=== PATIENT | male | born 1990 | race Caucasian/White ===

== ENCOUNTER 2018-04-07 07:07 | Emergency (ER) | payer OTHER ==
[~2018-04-07] VITALS: Ht 188 cm; Wt 88.5 kg
[2018-04-07 07:10] VITALS: BP 143/82
== END 2018-04-07 07:24 | disposition home or self-care (01) ==
LOC: ER 07:11
DX: G62.89 Other specified polyneuropathies (principal); F41.9 Anxiety disorder, unspecified
CPT/HCPCS: A4606; Z7610

== ENCOUNTER 2018-04-20 10:30 | Emergency (ER) | payer OTHER ==
[~2018-04-20] VITALS: Ht 188 cm; Wt 83.9 kg
[2018-04-20 10:34] VITALS: BP 115/74
== END 2018-04-20 11:31 | disposition home or self-care (01) ==
LOC: ER 10:34
DX: F41.9 Anxiety disorder, unspecified (principal); Z76.0 Encounter for issue of repeat prescription; F17.200 Nicotine dependence, unspecified, uncomplicated; G62.9 Polyneuropathy, unspecified
CPT/HCPCS: 99283; A4606; Z7610

== ENCOUNTER 2018-06-16 17:50 | Emergency (ER) | payer OTHER ==
[~2018-06-16] VITALS: Ht 188 cm; Wt 86.2 kg
[2018-06-16 17:50] VITALS: BP 130/83
== END 2018-06-16 18:33 | disposition home or self-care (01) ==
LOC: ER 17:54
DX: Z76.0 Encounter for issue of repeat prescription (principal); F41.9 Anxiety disorder, unspecified; G62.9 Polyneuropathy, unspecified; F17.200 Nicotine dependence, unspecified, uncomplicated
CPT/HCPCS: 99283; A4606; Z7610

== ENCOUNTER 2018-12-04 10:46 | Emergency (ER) | payer OTHER ==
[~2018-12-04] VITALS: Ht 188 cm; Wt 86.2 kg
[2018-12-04 11:16] VITALS: BP 140/81
== END 2018-12-04 11:48 | disposition home or self-care (01) ==
LOC: ER 10:48
DX: Z76.0 Encounter for issue of repeat prescription (principal); F41.9 Anxiety disorder, unspecified; F17.200 Nicotine dependence, unspecified, uncomplicated; G62.9 Polyneuropathy, unspecified; Z60.2 Problems related to living alone

== ENCOUNTER 2018-12-14 18:26 | Emergency (ER) | payer OTHER ==
[~2018-12-14] VITALS: Ht 175.3 cm; Wt 77.1 kg
[2018-12-14 18:35] VITALS: BP 129/71
== END 2018-12-14 19:45 | disposition home or self-care (01) ==
LOC: ER 18:29
DX: G62.9 Polyneuropathy, unspecified (principal); F41.9 Anxiety disorder, unspecified; F17.200 Nicotine dependence, unspecified, uncomplicated; Z60.2 Problems related to living alone
CPT/HCPCS: 99283; A4606

== ENCOUNTER 2019-01-05 10:59 | Emergency (ER) | payer OTHER ==
[~2019-01-05] VITALS: Ht 188 cm; Wt 84.4 kg
[2019-01-05 11:06] VITALS: BP 148/88
== END 2019-01-05 11:43 | disposition home or self-care (01) ==
LOC: ER 11:02
DX: G62.9 Polyneuropathy, unspecified (principal); F17.200 Nicotine dependence, unspecified, uncomplicated; F32.9 Major depressive disorder, single episode, unspecified; F41.9 Anxiety disorder, unspecified; Z60.2 Problems related to living alone

== ENCOUNTER 2019-02-08 11:32 | Emergency (ER) | payer OTHER ==
[~2019-02-08] VITALS: Ht 188 cm; Wt 88.5 kg
[2019-02-08 11:36] VITALS: BP 136/92
[2019-02-08] MEDS ORDERED: IBUPROFEN 600 MG TABLET PO ONE ×2 (12:00→12:05)
[2019-02-08] MEDS ORDERED: GABAPENTIN 100 MG CAPSULE PO ONE (12:00)
[2019-02-08] MEDS ORDERED: GABAPENTIN 100 MG CAPSULE ONE (12:05)
[2019-02-08] MEDS ORDERED: GABAPENTIN 300 MG CAPSULE ONE (12:06)
--- NOTE | 2019-02-08 12:12 | NUR ---
For discharge- verbalized understanding. Aftercare Instruction given Home ambulatory- Stable
== END 2019-02-08 12:14 | disposition home or self-care (01) ==
LOC: ER 11:35
DX: M79.2 Neuralgia and neuritis, unspecified (principal); G89.29 Other chronic pain; F41.9 Anxiety disorder, unspecified; F17.200 Nicotine dependence, unspecified, uncomplicated; Z60.2 Problems related to living alone

== ENCOUNTER 2019-03-21 07:59 | Emergency (ER) ==
[~2019-03-21] VITALS: Ht 180.3 cm; Wt 65.8 kg
[2019-03-21 08:05] VITALS: BP 131/82
[2019-03-21] MEDS ORDERED: GABAPENTIN 300 MG CAPSULE (08:11)
== END 2019-03-21 08:29 | disposition home or self-care (01) ==
LOC: ER 08:04
DX: M79.2 Neuralgia and neuritis, unspecified (principal); F32.9 Major depressive disorder, single episode, unspecified; F41.9 Anxiety disorder, unspecified; F10.10 Alcohol abuse, uncomplicated; F17.200 Nicotine dependence, unspecified, uncomplicated; Y90.9 Presence of alcohol in blood, level not specified; Z60.2 Problems related to living alone

== ENCOUNTER 2019-05-27 19:37 | Emergency (ER) | payer OTHER ==
[~2019-05-27] VITALS: Ht 188 cm; Wt 88.5 kg
[~2019-05-27 19:37] MED LIST: GABAPENTIN 300 MG CAPSULE
[2019-05-27 21:53] VITALS: BP 154/93
== END 2019-05-27 22:10 | disposition home or self-care (01) ==
LOC: ER 19:37
DX: M54.40 Lumbago with sciatica, unspecified side (principal); F41.9 Anxiety disorder, unspecified; Z76.0 Encounter for issue of repeat prescription

== ENCOUNTER 2019-09-02 12:34 | Emergency (ER) | payer OTHER ==
[~2019-09-02] VITALS: Ht 188 cm; Wt 90.7 kg
[2019-09-02 12:46] VITALS: BP 136/90
--- NOTE | 2019-09-02 12:55 | NUR ---
CARMEN HURD AT BEDSIDE FOR EVAL.
--- NOTE | 2019-09-02 13:07 | NUR ---
Patient discharged to home in stable condition. Written and verbal after care instructions given. Patient verbalizes understanding of instruction.
== END 2019-09-02 13:07 | disposition home or self-care (01) ==
LOC: ER 12:34
DX: G62.9 Polyneuropathy, unspecified (principal); Z76.0 Encounter for issue of repeat prescription; F41.9 Anxiety disorder, unspecified; F17.200 Nicotine dependence, unspecified, uncomplicated; Z79.899 Other long term (current) drug therapy

== ENCOUNTER 2019-11-15 13:07 | Emergency (ER) | payer OTHER ==
[~2019-11-15] VITALS: Ht 188 cm; Wt 93.4 kg
[2019-11-15 13:29] VITALS: BP 136/98
== END 2019-11-15 14:00 | disposition home or self-care (01) ==
LOC: ER 13:07
DX: Z76.0 Encounter for issue of repeat prescription (principal); F41.9 Anxiety disorder, unspecified; F10.10 Alcohol abuse, uncomplicated; F17.200 Nicotine dependence, unspecified, uncomplicated; Y90.9 Presence of alcohol in blood, level not specified

== ENCOUNTER 2019-12-27 15:14 | Emergency (ER) | payer OTHER ==
[~2019-12-27] VITALS: Ht 188 cm; Wt 93.4 kg
[2019-12-27 15:53] VITALS: BP 152/92
[2019-12-27] MEDS ORDERED: LIDOCAINE 1%-EPI 1:100,000 20 ML VIAL ONE (16:14)
[2019-12-27] MEDS ORDERED: IBUPROFEN 600 MG TABLET PO ONE ×2 (16:15→16:30)
[2019-12-27] MEDS ORDERED: TDAP [DIPH/PERTUSSIS/TET] 0.5 ML VIAL IM ONE ×2 (16:16→16:30)
[2019-12-27] MEDS ORDERED: LIDOCAINE 1%-EPI 1:100,000 50 ML VIAL IJ ONE (16:30)
== END 2019-12-27 16:57 | disposition home or self-care (01) ==
LOC: ER 15:15
DX: S51.811A Laceration without foreign body of right forearm, initial encounter (principal); S40.811A Abrasion of right upper arm, initial encounter; W54.0XXA Bitten by dog, initial encounter; Y93.89 Activity, other specified; Y92.89 Other specified places as the place of occurrence of the external cause; Y99.8 Other external cause status
CPT/HCPCS: 12001; 90471; 90715; 99283; J3490 ×2

== ENCOUNTER 2020-02-20 08:27 | Emergency (ER) | payer OTHER ==
[~2020-02-20] VITALS: Ht 185.4 cm; Wt 79.4 kg
[2020-02-20 08:37] VITALS: BP 141/84
== END 2020-02-20 08:47 | disposition home or self-care (01) ==
LOC: ER 08:29
DX: G62.9 Polyneuropathy, unspecified (principal); M54.30 Sciatica, unspecified side; Z76.0 Encounter for issue of repeat prescription; F41.9 Anxiety disorder, unspecified; Z79.899 Other long term (current) drug therapy

== ENCOUNTER 2020-08-21 12:39 | Emergency (ER) | payer OTHER ==
[~2020-08-21] VITALS: Ht 188 cm; Wt 95.3 kg
[2020-08-21 12:40] VITALS: BP 128/88
--- NOTE | 2020-08-21 14:32 | NUR ---
Patient discharged to home in stable condition. Written and verbal after care instructions given. Patient verbalizes understanding of instruction.
== END 2020-08-21 14:33 | disposition home or self-care (01) ==
LOC: ER 12:42
DX: Z76.0 Encounter for issue of repeat prescription (principal); F41.9 Anxiety disorder, unspecified; G62.9 Polyneuropathy, unspecified; F17.200 Nicotine dependence, unspecified, uncomplicated; Z79.899 Other long term (current) drug therapy

== ENCOUNTER 2021-04-20 11:54 | Emergency (ER) | payer OTHER ==
[~2021-04-20] VITALS: Ht 185.4 cm; Wt 77.1 kg
[2021-04-20 12:05] VITALS: BP 141/81
[2021-04-20] MEDS ORDERED: CHLO25CA22 PO (12:22)
[2021-04-20] MEDS ORDERED: ONDA4TAB11 PO (12:24)
== END 2021-04-20 12:34 | disposition home or self-care (01) ==
LOC: ER 12:06
DX: F13.239 Sedative, hypnotic or anxiolytic dependence with withdrawal, unspecified (principal); F41.9 Anxiety disorder, unspecified; F10.10 Alcohol abuse, uncomplicated; F17.200 Nicotine dependence, unspecified, uncomplicated; Y90.9 Presence of alcohol in blood, level not specified; Z79.899 Other long term (current) drug therapy

== ENCOUNTER 2022-07-08 10:54 | Emergency (ER) | payer OTHER ==
[~2022-07-08] VITALS: Ht 188 cm; Wt 86.2 kg
[~2022-07-08 10:54] MED LIST changes: +CHLO25CA22 PO; +ONDA4TAB11 PO
--- NOTE | 2022-07-08 11:00 | NUR ---
PT SEEN BY DR VILLALBA
[2022-07-08] MEDS ORDERED: GABA-532 PO (11:04)
[2022-07-08 11:09] VITALS: BP 140/91
--- NOTE | 2022-07-08 11:09 | NUR ---
Patient discharged to home in stable condition. Written and verbal after care instructions given. Patient verbalizes understanding of instruction.
== END 2022-07-08 11:11 | disposition home or self-care (01) ==
LOC: ER 11:02
DX: Z76.0 Encounter for issue of repeat prescription (principal); F41.9 Anxiety disorder, unspecified; F17.200 Nicotine dependence, unspecified, uncomplicated; Z86.69 Personal history of other diseases of the nervous system and sense organs; Z79.899 Other long term (current) drug therapy

== ENCOUNTER 2024-09-16 10:23 | Emergency (ER) | payer OTHER ==
[~2024-09-16] VITALS: Ht 185.4 cm; Wt 86.2 kg
[~2024-09-16 10:23] MED LIST changes: +GABA-532 PO
[2024-09-16 10:48] VITALS: BP 122/84; TEMP 98.1
[2024-09-16] MEDS ORDERED: BICT1TAB PO (11:34)
[2024-09-16] MEDS ORDERED: GABA600T12 PO (11:34)
[2024-09-16 11:39] VITALS: O2SAT 100
== END 2024-09-16 11:41 | disposition home or self-care (01) ==
LOC: ER 10:30
DX: M79.2 Neuralgia and neuritis, unspecified (principal); F41.9 Anxiety disorder, unspecified; F17.200 Nicotine dependence, unspecified, uncomplicated; Z76.0 Encounter for issue of repeat prescription; Z79.899 Other long term (current) drug therapy

== ENCOUNTER 2024-10-23 03:18 | Emergency (ER) | payer OTHER ==
[~2024-10-23] VITALS: Ht 188 cm; Wt 88.5 kg
[~2024-10-23 03:18] MED LIST changes: +BICT1TAB PO; +GABA600T12 PO
[2024-10-23 05:36] VITALS: BP 146/93; TEMP 98.1
[2024-10-23 05:44] VITALS: O2SAT 100
== END 2024-10-23 06:05 | disposition home or self-care (01) ==
LOC: ER 03:23
DX: F41.9 Anxiety disorder, unspecified (principal); F17.200 Nicotine dependence, unspecified, uncomplicated; Z76.0 Encounter for issue of repeat prescription; Z79.899 Other long term (current) drug therapy

== ENCOUNTER 2024-12-19 15:43 | Emergency (ER) | payer MEDICAID, OTHER ==
[~2024-12-19] VITALS: Ht 188 cm; Wt 88.5 kg
[2024-12-19 16:51] VITALS: BP 135/75; TEMP 98.6; O2SAT 99
== END 2024-12-19 16:54 | disposition home or self-care (01) ==
LOC: ER 15:55
DX: S16.1XXA Strain of muscle, fascia and tendon at neck level, initial encounter (principal); R51.9 Headache, unspecified; F41.9 Anxiety disorder, unspecified; F17.200 Nicotine dependence, unspecified, uncomplicated; Z79.899 Other long term (current) drug therapy; X58.XXXA Exposure to other specified factors, initial encounter; Y93.9 Activity, unspecified; Y92.9 Unspecified place or not applicable; Y99.9 Unspecified external cause status

== ENCOUNTER 2025-01-30 08:24 | Emergency (ER) | payer SELFPAY ==
[~2025-01-30] VITALS: Ht 188 cm; Wt 86.2 kg
[2025-01-30 09:50] LABS: BASOPHILS # (AUTO) 0.1 K/uL (0.0-0.2); EOSINOPHILS # (AUTO) 0.2 K/uL (0.0-0.7); EOSINOPHILS % (AUTO) 3.4 % (0.0-6.0); HEMATOCRIT 48 % (39-51); HEMOGLOBIN 16.9 g/dL (13.5-17.5); LYMPHOCYTES # (AUTO) 1.2 K/uL (0.8-4.8); LYMPHOCYTES % (AUTO) 26.7 % (20.0-44.0); MEAN CORPUSCULAR HEMOGLOBIN 32 PG (26.0-33.0); MEAN CORPUSCULAR HGB CONC 35 g/dl (31.0-36.0); MEAN CORPUSCULAR VOLUME 93 fL (80-96); MONOCYTES # (AUTO) 0.4 K/uL (0.1-1.30); MONOCYTES % (AUTO) 9.3 % (2.0-12.0); NEUTROPHILS # (AUTO) 2.7 K/uL (1.8-8.9); NEUTROPHILS % (AUTO) 58.6 % (43.0-81.0); PLATELET COUNT (AUTO) 270 K/uL (150-450); RED BLOOD CELL COUNT(AUTO) 5.23 MIL/uL (4.5-6.0); RED CELL DISTRIBUTION WIDTH 12.7 % (11.5-15.0); WHITE BLOOD COUNT (AUTO) 4.5 K/uL (4.3-11.0)
[2025-01-30 09:57] LABS: CREATININE 1.4 mg/dL (0.6-1.3)
[2025-01-30 10:03] LABS: ALBUMIN 4.4 g/dL (3.4-5.0); BILIRUBIN,TOTAL 0.7 mg/dL (0.2-1.0); TOTAL PROTEIN, SERUM 8.3 g/dL (6.4-8.2)
[2025-01-30] MEDS: IV NS 0.9% 500 ML BAG IV ONE (10:14)
[2025-01-30 11:45] VITALS: BP 124/88; TEMP 98.1; O2SAT 98
== END 2025-01-30 11:46 | disposition home or self-care (01) ==
LOC: ER 08:35
DX: S09.90XA Unspecified injury of head, initial encounter (principal); R42 Dizziness and giddiness; F17.200 Nicotine dependence, unspecified, uncomplicated; F41.9 Anxiety disorder, unspecified; Z79.899 Other long term (current) drug therapy; Z86.69 Personal history of other diseases of the nervous system and sense organs; W22.09XA Striking against other stationary object, initial encounter; Y93.89 Activity, other specified; Y92.89 Other specified places as the place of occurrence of the external cause; Y99.8 Other external cause status
CPT/HCPCS: 99285; 96360; 70450; 71045; 93005; 85025; 82550; 36415; 80053; 84484 ×2; J7030